=== PATIENT | male | born 1955 | race Hispanic/Latino ===

== ENCOUNTER 2016-11-28 10:56 | Observation (INO) | payer OTHER ==
[~2016-11-28] VITALS: Ht 157.5 cm; Wt 65.8 kg
[~2016-11-28 10:56] MED LIST: MIRALAX17 GM PO; NAPROXEN500 MG PO; OXYCODONE AND A1 TA7 PO; RISPERIDONE4 MG PO; SENOKOT NATURA8.6 MG PO; SEROQUEL (MONO200 MG PO; SEROQUEL XR400 MG PO; SEROQUEL400 MG PO; TRAMADOL50 MG PO; ZITHROMAX Z-PA250 M1 PO
--- NOTE | 2016-11-28 11:03 | NUR ---
61 Y/O MALE C/O 2 WEEK HISTORY CHEST PAIN, BACK PAIN, SOB AND LOSS OF STRENGTH. STATES HE FEELS LIKE HE CANNOT GET A DEEP BREATH IN. ALSO FEELS "WEAK, LIKE A STROKE IS COMING". L HAND GRASP WEAKER THAN R - PT CONFIRMS SYMPTOMS HAVE BEEN ONGOING FOR AT LEAST 1 WEEK. SPEAKING WITH NO NEURO DEFICITS NOTED. FACIAL SYMMETRY PRESENT TAKEN FOR EKG
--- NOTE | 2016-11-28 11:16 | ED CARDIAC/CP/PALPITATIONS ---
History of Present Illness General Chief Complaint: General Adult Stated Complaint: CP PAIN, LEG PAIN, BACK PAIN, HEADACHE Source: patient Exam Limitations: clinical condition Vital Signs & Intake/Output Vital Signs & Intake/Output Vital Signs Date Time Temp Pulse Resp B/P Pulse O2 O2 Flow FiO2 Ox Delivery Rate 11/29 0805 98.1 52 24 127/74 98 Nasal 40% Cannula 11/29 0000 95 Nasal 2.0L Cannula 11/28 2325 97.1 60 18 102/72 96 Nasal 2.0L Cannula 11/28 1900 Nasal 2.0L Cannula 11/28 1840 57 18 114/70 97 Room Air 11/28 1824 97.0 57 18 122/87 98 Nasal 2.0L Cannula 11/28 1637 96.2 60 16 134/73 97 Nasal 2.5L Cannula 11/28 1140 99 Nasal 2.0L Cannula ED Intake and Output 11/29 0000 11/28 1200 Intake Total 410 0 Output Total 350 Balance 60 0 Intake, IV 10 Intake, Oral 400 0 Number 0 Bowel Movements Output, Urine 350 Patient 145 lb 145 lb Weight Allergies Coded Allergies: aspirin (HIVES 11/28/16) Reconcile Medications No Known Home Medications Triage Note: 61 Y/O MALE C/O 2 WEEK HISTORY CHEST PAIN, BACK PAIN, SOB AND LOSS OF STRENGTH. STATES HE FEELS LIKE HE CANNOT GET A DEEP BREATH IN. ALSO FEELS "WEAK, LIKE A STROKE IS COMING". L HAND GRASP WEAKER THAN R - PT CONFIRMS SYMPTOMS HAVE BEEN ONGOING FOR AT LEAST 1 WEEK. SPEAKING WITH NO NEURO DEFICITS NOTED. FACIAL SYMMETRY PRESENT TAKEN FOR EKG Triage Nurses Notes Reviewed? yes Onset: Abrupt Duration: day(s): (2) Timing: recent history Location: LEFT ARM, LEFT LEG Activities at Onset: none Associated Symptoms: CHEST PAIN, SOB, LEFT SIDED WEAKNESS HPI: 61 year old male presents to the ER for chief complaint of left sided arm and leg weakness for the past 2 days. He also reports chest pain, shortness of breath and difficulty walking. He states he knew he was having a stroke because he could not keep things in his left hand. Denies headache or traums. Patient reports history of cva but is not on aspirin. He states he does not drink or smoke anymore, denies drug use. He states he does not have a primary care doctor. Past History Travel History Traveled to [place] past 21 day No Medical History Any Pertinent Medical History? see below for history Neurological: CVA, TIA EENT: NONE Cardiovascular: NONE Respiratory: NONE Gastrointestinal: NONE Hepatic: NONE Renal: NONE Musculoskeletal: BACK INJURY L KNEE L SHOULDER Psychiatric: alcohol dependence, bipolar disease, depression, psychosis, substance abuse Endocrine: NONE Blood Disorders: NONE Cancer(s): NONE WELFARE MANAGER/Reproductive: NONE History of MRSA: No History of VRE: No History of CDIFF: No Surgical History Surgical History: non-contributory Psychosocial History Who do you live with Patient/Self What is your primary language [place] Tobacco Use: Current Daily Use Daily Tobacco Use Amount/Type: => 5 Cigarettes daily Family History Hx Contributory? No Review of Systems Review of Systems Constitutional: Denies: chills, diaphoresis. EENTM: Reports: no symptoms. Respiratory: Reports: short of breath. Denies: cough, sputum production. Cardiovascular: Reports: chest pain, palpitations. GI: Denies: abdominal pain. Genitourinary: Reports: no symptoms. Musculoskeletal: Reports: no symptoms. Skin: Reports: no symptoms. Neurological/Psychological: Reports: anxiety, numbness. Hematologic/Endocrine: Denies: bruising, bleeding, polyuria, polydipsia. Immunologic/Allergic: Reports: no symptoms. All Other Systems: Reviewed and Negative Physical Exam Physical Exam General Appearance: well developed/nourished, alert, awake Head: atraumatic, normal appearance Eyes: Bilateral: normal appearance, PERRL, EOMI. Ears, Nose, Throat: normal pharynx, normal ENT inspection, hearing grossly normal Neck: normal inspection, supple, full range of motion Respiratory: normal breath sounds, TENDER CHEST WALL Cardiovascular: regular rate/rhythm Peripheral Pulses: 2+ radial (R), 2+ radial (L) Gastrointestinal: soft, no organomegaly Back: normal inspection, normal range of motion, vertebral tenderness Extremities: LEFT ARM 4/5 LEFT LEG 4/5 Skin: intact, normal color, warm/dry Comments: nih scale 2 BEDSIDE SWALLOW EVALUATION PASSED Core Measures ACS in differential dx? No Severe Sepsis Present: No Septic Shock Present: No Progress Differential Diagnosis: AMI, aortic dissection, myocarditis, pancreatitis, pericarditis, pneumothorax, PUD/GERD, unstable angina, CVA/TIA, PANIC ATTACK, ANXIETY Plan of Care: Orders Procedure Date/time Status ECHOCARDIOGRAM 11/29 1445 Active DIRECT LDL 11/29 0632 Complete LIPID PANEL 11/29 0600 Complete BASIC ELECTROLYTES PLUS BUN&CR 11/29 0600 Complete TROPONIN LEVEL 11/29 0000 Complete EKG 11/29 0000 Active Heart Healthy Diet 11/28 D Active OXYGEN SETUP (GEN) 11/28 2100 Complete Teach/Educate 11/28 1911 Active Pain Treatment and Response 11/28 191 Active Nutritional Intake, Monitor 11/28 191 Active Isolation 11/28 191 Active Patient Care Conference 11/28 1911 Active Activity/Ambulation 11/28 1911 Active TROPONIN LEVEL 11/28 1800 Complete EKG 11/28 1800 Active Pathway - chart 11/28 1440 Active URINE DRUGS OF ABUSE 11/28 1440 Active URINALYSIS 11/28 1440 Active Code Status 11/[address] in observation 11/28 1429 Active Patient Data 11/28 1352 Active Vital Signs 11/28 1343 Active Code Status 11/28 1343 Complete Intake & Output 11/28 1140 Active LIPID PANEL 11/28 1116 Complete SWALLOW EVALUATION 11/28 UNK Active OXYGEN SETUP CHG 11/28 UNK Complete OXYGEN 11/28 UNK Complete OXYGEN TRANSPORT 11/28 UNK Complete TRC EVALUATION (GEN) 11/28 UNK Active PT Evaluate & Treat 11/28 UNK Active House Staff 11/28 UNK Active Lab Add-on Test 11/28 UNK Active Occupational Tx Eval & Treat 11/28 UNK Active VTE Mechanical Prophylaxis 11/28 UNK Active Vital Signs 11/28 UNK Complete NIH Stroke Scale 11/28 UNK Active PSYCHIATRIC CONSULT 11/28 UNK Active Current Medications Sig/Ryder Start time Last Medication Dose Stop Time Status Admin Atorvastatin Calcium 40 MG 1700 11/29 1700 AC (Lipitor) Acetaminophen 650 MG Q6P PRN 11/28 1445 AC (Tylenol) Laboratory Tests 11/29/16 0945: Methadone Screen Pending, Barbiturate Screen Pending, Ur Phencyclidine Scrn Pending, Amphetamines Screen Pending, U Benzodiazepines Scrn Pending, Urine Cocaine Screen Pending, Urine Cannabis Screen Pending, Urine Color Pending, Urine Clarity Pending, Urine pH Pending, Ur Specific [place] Pending, Urine Protein Pending, Urine Ketones Pending, Urine Nitrite Pending, Urine Bilirubin Pending, Urine Urobilinogen Pending, Ur Leukocyte Esterase Pending, Ur Microscopic Pending, Urine Hemoglobin Pending, Urine Glucose Pending 11/29/16 0632: Anion Gap 6, Estimated GFR > 60, BUN/Creatinine Ratio 16.7, Triglycerides 461 H , Cholesterol 182, LDL Cholesterol Direct 104.72 H, LDL Cholesterol, Calc ND, HDL Cholesterol 34 L, Cholesterol/HDL Ratio 5 H 11/29/16 0030: Troponin I < 0.01 11/28/16 1755: Troponin I < 0.01 11/28/16 1116: Anion Gap 10, Estimated GFR > 60, BUN/Creatinine Ratio 15.6, Glucose 94, Calcium 9.7, Magnesium 2.1, Total Bilirubin 0.4, AST 27, ALT 54, Alkaline Phosphatase 69 , Troponin I < 0.01, Total Protein 7.1, Albumin 4.1, Globulin 3.0, Albumin/ Globulin Ratio 1.4, Triglycerides 307 H, Cholesterol 181, LDL Cholesterol, Calc 80, HDL Cholesterol 40, Cholesterol/HDL Ratio 5 H, CBC w Diff NO MAN DIFF REQ, RBC 4.78, MCV 93.8, MCH 32.3 H, RDW 13.8, MPV 7.4, Gran % 60.6, Lymphocytes % 27.1, Monocytes % 10.1 H, Eosinophils % 1.9, Basophils % 0.3, Absolute Granulocytes 4.8, Absolute Lymphocytes 2.1, Absolute Monocytes 0.8 H, Absolute Eosinophils 0.1, Absolute Basophils 0, PUBS MCHC 34.5 Diagnostic Imaging: Viewed by Me: Radiology Read, CT Scan, MRI. Discussed w/RAD: Radiology Read, CT Scan, MRI. Initial ED EKG: NSR Rhythm Strip: normal sinus rhythm Comments: PATIENT: KINGSLEY POWERS PRESENT AGE: 61 PATIENT ACCOUNT NO: [id number] : 56 LOCATION: [facility] ORDERING PHYSICIAN: SWAPNA VIEIRA MD SERVICE DATE: 11/28/16114 EXAM TYPE: RAD - XRY-PORTABLE CHEST XRAY EXAMINATION: XR PORTABLE CHEST CLINICAL INFORMATION: Cough and shortness of breath COMPARISON: Chest x-rays most recent prior dated 07/31/2015 TECHNIQUE: Portable AP view of the chest was obtained. FINDINGS: Cardia mediastinal silhouette is within normal limits. Stable calcified granuloma right lower lung. No acute airspace opacity. Minor subsegmental atelectasis left lower lung. Bony thorax is intact. IMPRESSION: No acute pulmonary disease. Stable chest x-ray. DICTATED BY: DONNIE KERR MD DATE/TIME DICTATED:11/28/161205 CREDIT CARD CONTROL CLERK:JOSE J DATE/TIME TRANSCRIBED:11/28/161205 CONFIDENTIAL, DO NOT COPY WITHOUT APPROPRIATE AUTHORIZATION. <Electronically signed in Other Vendor System> SIGNED BY: DONNIE KERR MD 11/28/16 1211 PATIENT: KINGSLEY POWERS PRESENT AGE: 61 PATIENT ACCOUNT NO: [id number] : 56 LOCATION: [facility] ORDERING PHYSICIAN: SWAPNA VIEIRA MD SERVICE DATE: 11/28/16-1233 EXAM TYPE: CAT - CT HEAD WO IV CONTRAST EXAMINATION: CT HEAD WITHOUT CONTRAST CLINICAL INFORMATION: Left arm and leg weakness for 2 days. COMPARISON: MRI from 04/01/2015. CT 03/30/2015. TECHNIQUE: Contiguous axial imaging was performed from the skull base to vertex without intravenous contrast. DLP: 601 mGy-cm. FINDINGS: There is no evidence of acute intracranial hemorrhage or territorial infarction. No abnormal mass effect or midline shift is seen. Hebert to white matter differentiation is well preserved. No extra-axial fluid collections are identified. No hydrocephalus. No significant volume loss. There is no abnormal attenuation within the brain parenchyma. The osseous structures and soft tissues are normal. Mild opacification of the right ethmoid air cells. The mastoid air cells and visualized portions of the paranasal sinuses are otherwise well aerated. IMPRESSION: No acute intracranial pathology. DICTATED BY: ZULEIMA HINOJOSA MD DATE/TIME DICTATED:11/28/161247 CREDIT CARD CONTROL CLERK:JOSE J DATE/TIME TRANSCRIBED:11/28/161247 CONFIDENTIAL, DO NOT COPY WITHOUT APPROPRIATE AUTHORIZATION. <Electronically signed in Other Vendor System> SIGNED BY: ZULEIMA HINOJOSA MD 11/28 1252 PATIENT: KINGSLEY POWERS PRESENT AGE: 61 PATIENT ACCOUNT NO: [id number] : 57 LOCATION: [facility] ORDERING PHYSICIAN: SWAPNA VIEIRA MD SERVICE DATE: 11/28/16-1355 EXAM TYPE: MRI - MRI-HEAD W/O DARLEEN EXAMINATION: MR BRAIN WITHOUT CONTRAST CLINICAL INFORMATION: Evaluate for stroke. COMPARISON: Brain MRI from 04/01/2015. TECHNIQUE: Multiplanar, multisequence imaging of the brain was performed without contrast. The study is slightly limited due to motion artifacts. FINDINGS: No diffusion abnormalities are identified to suggest an acute or subacute infarct. The ventricles are normal in size. No mass effect or midline shift is seen. No brain parenchymal signal abnormality is noted. No extra-axial fluid collections are seen. The brainstem and cerebellum are normal. The gradient refocused acquisition is normal. The craniovertebral junction, marrow signal, and midline structures are normal. The major intracranial flow voids at the level of the [place] are preserved. The dural venous sinus flow voids are maintained. The mastoid air cells and paranasal sinuses are fairly well aerated. IMPRESSION: Normal MRI of the brain. No acute process. DICTATED BY: MOOSE NARVAEZ MD DATE/TIME DICTATED:11/28/161614 CREDIT CARD CONTROL CLERK:JOSE J DATE/TIME TRANSCRIBED:11/28/161614 CONFIDENTIAL, DO NOT COPY WITHOUT APPROPRIATE AUTHORIZATION. <Electronically signed in Other Vendor System> SIGNED BY: MOOSE NARVAEZ MD 1622 Departure Departure Time of Disposition: 1345 Disposition: STILL A PATIENT Condition: Stable Clinical Impression Primary Impression: CVA (cerebral vascular accident) Referrals: KAYODE AVALOS MD Departure Forms: Customer Survey General Discharge Information Prescriptions: Current Visit Scripts No Known Home Medications Observation Note Spoke With: DYLON CUNHA,LONNIE Cordova Physician Advisor Notified: GINI CUNHA,TAWANNA [address] Patient In: Non-ED OBS Care Area Rationale for Observation: My rational for observation is as follows [TELE MONITOR, NEURO CHECKS, MRI, NEURO CONSULT, SERIAL EKG/TROPONIN]. Critical Care Note Critical Care Note Critical Care Time: non-applicable
[2016-11-28 11:27] LABS: ABSOLUTE BASOPHIL COUNT 0 /CUMM (0.0-0.2); ABSOLUTE EOSINOPHIL COUNT 0.1 /CUMM (0.0-0.7); ABSOLUTE GRANULOCYTE CT 4.8 /CUMM (1.4-6.5); ABSOLUTE LYMPH COUNT 2.1 /CUMM (1.2-3.4); ABSOLUTE MONOCYTE COUNT 0.8 /CUMM (0.10-0.60); BASOPHIL % 0.3 % (0.0-2.0); EOSINOPHIL % 1.9 % (0-5); GRANULOCYTE % 60.6 % (42.2-75.2); HEMATOCRIT 44.9 % (42-52); MEAN CORPUSCULAR HGB 32.3 PG (27.0-31.0); MEAN CORPUSCULAR HGB CONC 34.5 G/DL (33.0-37.0); MEAN CORPUSCULAR VOLUME 93.8 FL (80.0-94.0); MEAN PLATELET VOLUME 7.4 FL (7.4-10.4); PLATELET COUNT 266 /CUMM (130-400); RBC DISTRIBUTION WIDTH 13.8 % (11.5-14.5); RED BLOOD CELL CT 4.78 /CUMM (4.70-6.10); WHITE BLOOD CELL COUNT 7.9 /CUMM (4.8-10.8)
--- NOTE | 2016-11-28 11:45 | NUR ---
PT TO ROOM, PT NOTED TO BE CRYING RESTING ON STRETCHER , PT NOTED TO BE VERY ANXIOUS, STATES THAT HE HAS MOLD IN HIS HOUSE AND THAT HE FEELS LIKE HE CAN'T CATCH HIS BREATH, PT ALSO STATES THAT HE WAS INVOLVED IN AN ARGUMENT WITH HIS [place] DUE TO HE WON'T FIX THE PROBLEM. ALSO STATES THAT HE HAS BEEN HAVING CP NON RADIATING FOR THE PAST 2 WEEKS AND FEELS LIKE HE HAS BEEN FORGETFUL AND THAT HE IS HAVING WEAKNESS ON HIS LEFT SIDE , PT NOTED WITH WEAKER HAND GRASP ON L SIDE, NORMAL SPEECH AND ABLE TO FOLLOW COMMANDS. WHEN ASKED ABOUT WHEN SYMPTOMS STARTED HE STATD THAT " ITS BEEN A COUPLE OF WEEKS". DR VIEIRA AT BEDSIDE. IV PLACED AND PORTABLE CXR COMPLETED . PT AWARE THAT HE WILL BE TRANSFERRED TO [facility] TO HAVE CT OF HEAD ,
--- NOTE | 2016-11-28 12:11 | RADIOLOGY REPORT ---
EXAMINATION: XR PORTABLE CHEST CLINICAL INFORMATION: Cough and shortness of breath COMPARISON: Chest x-rays most recent prior dated 07/31/2015 TECHNIQUE: Portable AP view of the chest was obtained. FINDINGS: Cardia mediastinal silhouette is within normal limits. Stable calcified granuloma right lower lung. No acute airspace opacity. Minor subsegmental atelectasis left lower lung. Bony thorax is intact. IMPRESSION: No acute pulmonary disease. Stable chest x-ray.
--- NOTE | 2016-11-28 12:12 | NUR ---
PT MEDICATED WITH ATIVAN PER ORDER
--- NOTE | 2016-11-28 12:31 | NUR ---
PT NOTED TO BE SLEEPING AT THIS TIME, REGULAR RESP RATE NOTED . NSR ON MONITOR HR 62
--- NOTE | 2016-11-28 12:40 | NUR ---
PT TO CAT SCAN VIA STRETCHER
--- NOTE | 2016-11-28 12:49 | NUR ---
PT RETURNED FROM CT SCAN. PT AWAKE ALERT AND ORIENTED , NSR ON MONITOR. STATES THAT THE ATIVAN I GAVE HIM HELPED HIM RELAX A LITTLE
--- NOTE | 2016-11-28 12:52 | CT SCAN REPORT ---
EXAMINATION: CT HEAD WITHOUT CONTRAST CLINICAL INFORMATION: Left arm and leg weakness for 2 days. COMPARISON: MRI from 04/01/2015. CT 03/30/2015. TECHNIQUE: Contiguous axial imaging was performed from the skull base to vertex without intravenous contrast. DLP: 601 mGy-cm. FINDINGS: There is no evidence of acute intracranial hemorrhage or territorial infarction. No abnormal mass effect or midline shift is seen. Hebert to white matter differentiation is well preserved. No extra-axial fluid collections are identified. No hydrocephalus. No significant volume loss. There is no abnormal attenuation within the brain parenchyma. The osseous structures and soft tissues are normal. Mild opacification of the right ethmoid air cells. The mastoid air cells and visualized portions of the paranasal sinuses are otherwise well aerated. IMPRESSION: No acute intracranial pathology.
--- NOTE | 2016-11-28 13:34 | NUR ---
PT MEDICATED WITH ASPIRIN PER EMAR.
--- NOTE | 2016-11-28 15:16 | NUR ---
ASSUMED CARE OF PT. REPORT RECIEVED FROM LETICIA. PT SENT TO MRI
--- NOTE | 2016-11-28 16:02 | History & Physical ---
See Addendum CAMRYN CUNHA,IZZY 11/28/16 1601: General Information and HPI MD Statement: I have seen and personally examined KINGSLEY POWERS and documented this H &P. The patient is a 61 year old M who presented with a patient stated chief complaint of [weakness]. Source of Information: patient, old records, EMS Exam Limitations: clinical condition, confusion History of Present Illness: Patient is a 61 YO M with PMH significant for CVA (mar 2015), TIA, Bipolar disorder, Substance abuse, psychosis, substance abuse, rotator cuff injury (left side), mood disorder came to the ER with left sided weakness ongoing for the past 1 week. He also reports right shoulder pain, back pain, left knee pain which were chronic. He appears altered unable to answer appropriately for the questions. He is able to provide history but its not reliable. He reports he has been having these symptoms for the past 1week, he was taking weed to help him with his symptoms. His speech and motor activity appears very delayes during the interview. He does appear in acute distress but very tearful. He also reports chest pain which is nonspecific, noncardiac in nature. He reports cough with yellow phlegm production, not associated with fevers/ chills. He reports nausea, denies any vomiting, diarrhea, recent infections. He reports he was not taking any medications from unknown time period. He is actively talking irrelevant things in the ER. He fell down form a building with his friend in the past, resulted in of his friend followed by PTSD in him. Allergies/Medications Allergies: Coded Allergies: aspirin (HIVES 11/28/16) Home Med list No Known Home Medications Compliance With Home Meds: POOR Past History Travel History Traveled to [place] past 21 day No Medical History Neurological: CVA, TIA EENT: NONE Cardiovascular: NONE Respiratory: NONE Gastrointestinal: NONE Hepatic: NONE Renal: NONE Musculoskeletal: BACK INJURY L KNEE L SHOULDER Psychiatric: alcohol dependence, bipolar disease, depression, psychosis, substance abuse Endocrine: NONE Blood Disorders: NONE Cancer(s): NONE PERSONNEL CONSULTANT/Reproductive: NONE History of MRSA: No History of VRE: No History of CDIFF: No Surgical History Surgical History: non-contributory Past Family/Social History Family History Relations & Conditions if any Relation not specified for: *No pertinent family history Psychosocial History Past Psychosocial History Unobtainable at this time Where do you live? Home Who Do You Live With? self Services at Home: None Primary Language: [place] Smoking Status: Current Everyday Smoker ETOH Use: denies use Illicit Drug Use: marijuana Functional Ability ADLs Independent: dressing, eating, toileting, bathing. Ambulation: independent IADLs Independent: shopping, housework, finances, food prep, telephone, transportation , medication admin. Review of Systems Review of Systems Constitutional: Reports: see HPI. Cardiovascular: Reports: chest pain. Respiratory: Reports: cough. GI: Reports: nausea. Comments ROS negative except the above. Exam & Diagnostic Data Last 24 Hrs of Vital Signs/I&O Vital Signs Date Time Temp Pulse Resp B/P Pulse O2 O2 Flow FiO2 Ox Delivery Rate 11/28 1900 Nasal 2.0L Cannula 11/28 1824 97.0 57 18 122/87 98 Nasal 2.0L Cannula 11/28 1637 96.2 60 16 134/73 97 Nasal 2.5L Cannula 11/28 1140 99 Nasal 2.0L Cannula 11/28 1100 98.6 79 16 137/94 97 Room Air Intake & Output 11/28 1600 11/28 0800 11/28 0000 Intake Total 0 Output Total Balance 0 Intake, Oral 0 Patient 65.771 kg Weight Physical Exam General Appearance Alert, Mild Distress Skin No Rashes, No Breakdown HEENT PERRLA, EOMI Neck Supple Cardiovascular Normal S1, Normal S2 Lungs Clear to Auscultation, Normal Air Movement Abdomen Normal Bowel Sounds, Soft, No Tenderness Neurological slow speech, delayed motor activity, hand splunk consultant on Right > left. Strength 4/5 on left side, 5/5 right side, normal tone. Reflexes 2+, finger nose test normal. Extremities No Clubbing, No Cyanosis, No Edema, a wrist band present around his left knee Vascular Normal Pulses, Pulses Symmetrical Last 24 Hrs of Labs/Steven: Laboratory Tests 11/28/16 1755: Troponin I < 0.01 11/28/16 1116: Anion Gap 10, Estimated GFR > 60, BUN/Creatinine Ratio 15.6, Glucose 94, Calcium 9.7, Magnesium 2.1, Total Bilirubin 0.4, AST 27, ALT 54, Alkaline Phosphatase 69 , Troponin I < 0.01, Total Protein 7.1, Albumin 4.1, Globulin 3.0, Albumin/ Globulin Ratio 1.4, CBC w Diff NO MAN DIFF REQ, RBC 4.78, MCV 93.8, MCH 32.3 H, RDW 13.8, MPV 7.4, Gran % 60.6, Lymphocytes % 27.1, Monocytes % 10.1 H, Eosinophils % 1.9, Basophils % 0.3, Absolute Granulocytes 4.8, Absolute Lymphocytes 2.1, Absolute Monocytes 0.8 H, Absolute Eosinophils 0.1, Absolute Basophils 0, PUBS MCHC 34.5 Diagnostic Data EKG Results NSR - 70 MA 128, QTc 402 CXR Results Normal Assessment/Plan Assessment: Patient is a 61 YO M with PMH significant for multiple psychiatric issues - PTSD , bipolar disorder, alcohol dependence, substance abuse (marijuana) came to the ER with a week history of weakness, multiple chronic pain issues. He is significantly altered in the ER VS Afebrile, HR 79, BP 137/94mmHg, on 2L NC Unremarkable labs Utox not received yet. CT head, MRI and CXR are negtive for any acute pathology PLAN Continue to monitor in observation TIA ruled out with negative CT/MRI and neuro consulted * Aspirin 81mg and atorvastatin 40mg started Atypical chest pain * Serial EKG and trops X3 * A single dose of aspirin 325mg is given in ER Psychosis * Possibly secondary to Bipolar disorder/noncompliance with medications/ marijuana intake * Needs complete psychiatric evaluation * A single dose of xanax given in ER DVT Prophylaxis * SC heparin 5000units TID Code Status * Full Code As Ranked By This Provider Problem List: 1. Marijuana use 2. CVA (cerebral infarction) 3. Chest pain 4. Elevated blood pressure 5. Weakness of left side of body 6. Bronchitis Core Measures/Miscellaneous Acute Coronary Syndrome ACS Diagnosis: No Cerebrovascular Accident CVA/TIA Diagnosis: Yes Neurological S/S of CVA: Left Hemiparesis Bedside Swallow Eval Done: Yes Antithrombotic: No LDL Assessed Within 24 Hours: Yes Currently on Statin: Yes Congestive Heart Failure CHF Diagnosis: No Venous Thromboembolism VTE Risk Factors: Immobility, paresis No [facility] VTE prophylaxis d/t: No contraindications No VTE Pharm Prophylaxis d/t: No contraindications VTE Diagnosis: No VTE Type: NONE VTE Confirmed by (Test): NONE Severe Sepsis Severe Sepsis Present: No Septic Shock Septic Shock Present: No Miscellaneous Documentation Attending Case Discussed With: CHUYITA NAJERA MD Primary Care Physician: PATIENT HAS NO PRIMARY CARE DR Patient sees these Specialists Unknown Level of Patient Care: Telemetry SONAL CONNELL MDYMIN 11/29/16 0755: Resident Review Statement Resident Statement: examined this patient, discussed with internet sales representative, agreed with internet sales representative, reviewed EMR data (avail), reviewed images, amended to note Other Findings: This is 61-year-old [place]-speaking male with past medical history of questionable CVA in March 2015, fall from two-story living resulting in left rotator cuff injury, left knee injury and left-sided weakness, history of polysubstance abuse, bipolar disorder, psychosis, PTSD not following any psychiatry lately and not on any psychiatry medication presented to ER with chief complaint of left-sided weakness of one week associated with speech abnormality. Patient noted very tangential and was not able to provide appropriate history. Patient noted very confused as well. Patient reported nonspecific substernal chest pain nonradiating, occasionally yellow sputum production. He denied any fever, chills, nausea, vomiting, abdominal pain, urinary symptoms. Denies hallucination. His vitals on admission were T 98.6, HR 79, RR 16, BP 137/94, O2 sat 97% on room air. On physical exam patient alert, oriented 3 but confused and tangential with flight of ideas, noted delayed speech with delayed thought processing, HEENT PERRLA EOMI, neck supple, heart S1-S2 normal without murmur, lungs clear on auscultation, abdomen soft nontender nondistended with preserved bowel sounds, noted significant left-sided weakness with power of 4/5 in left lower extremity and power of 3/5 in left upper extremity, preserved sensation, cerebellar signs negative, Babinski downgoing, deferred gait exam, cranial nerves 2-12 intact. His labs were significant for H&H 15.5/44.9, BUN 14/creatinine 0.9, normal LFT, troponin negative UA and urine toxicology was pending EKG normal sinus rhythm with no acute ST-T changes, QTC 402 Chest x-ray was unremarkable CT head did not reveal any acute intracranial pathology MRI head was unremarkable Carotid Doppler did not reveal any hemodynamically significant stenosis Assessment and plan: 1. Left-sided weakness associated with severe right shoulder and back pain - Likely secondary to his previous fall in 2006 resulting in severe back and shoulder problem - CT head and MRI head noted unremarkable, unlikely any acute neurologic event - Check urine for toxicology as patient has history of polysubstance abuse - Carotid Doppler unremarkable for any significant stenosis - observe on telemetry for 24 hours - Serial neuro checks - Continue aspirin and statin - Check lipid profile in a.m. - Pass bedside swallow eval - PT OT evaluation - Swallow evaluation - Neurology evaluation and 2. Atypical chest pain - observe on telemetry - Serial troponin and EKG to rule out underlying coronary event 3. History of bipolar disorder with psychosis - Patient needs psychiatry evaluation - Check urine toxicology for polysubstance abuse 4. DVT prophylaxis Subcutaneous heparin 5. Full code
--- NOTE | 2016-11-28 16:22 | MRI REPORT ---
EXAMINATION: MR BRAIN WITHOUT CONTRAST CLINICAL INFORMATION: Evaluate for stroke. COMPARISON: Brain MRI from 04/01/2015. TECHNIQUE: Multiplanar, multisequence imaging of the brain was performed without contrast. The study is slightly limited due to motion artifacts. FINDINGS: No diffusion abnormalities are identified to suggest an acute or subacute infarct. The ventricles are normal in size. No mass effect or midline shift is seen. No brain parenchymal signal abnormality is noted. No extra-axial fluid collections are seen. The brainstem and cerebellum are normal. The gradient refocused acquisition is normal. The craniovertebral junction, marrow signal, and midline structures are normal. The major intracranial flow voids at the level of the telida of [place] are preserved. The dural venous sinus flow voids are maintained. The mastoid air cells and paranasal sinuses are fairly well aerated. IMPRESSION: Normal MRI of the brain. No acute process.
--- NOTE | 2016-11-28 16:32 | NUR ---
RETURNED FROM MRI AND ULTRASOUND
--- NOTE | 2016-11-28 17:23 | NUR ---
PT TO ROOM 185 BED 2
--- NOTE | 2016-11-28 18:00 | NUR ---
REPEAT EKG AND TROPONINS DONE
--- NOTE | 2016-11-28 18:12 | ULTRASOUND REPORT ---
EXAMINATION: US DUPLEX CAROTID AND VERTEBRAL CLINICAL INFORMATION: Left-sided weakness. COMPARISON: Carotid ultrasound 03/31/2015. TECHNIQUE: Real-time ultrasound and Doppler techniques (integrating B-mode 2D vascular images, Doppler spectral analysis and color flow Doppler imaging) were utilized to interrogate the extracranial carotid and vertebral arteries bilaterally. The degree of stenosis determined by criteria similar to NASCET. FINDINGS: Right common carotid artery peak systolic velocities range between 65.2 and 96.7 cm/s with a maximal end-diastolic velocity of 22.3 cm/s. Right internal carotid artery peak systolic velocities range between 43.6 and 55.4 cm/s with maximal end-diastolic velocity 22 cm/s. Right external carotid artery peak systolic velocity 63.67 m/s. There is antegrade flow within the right vertebral artery. No atherosclerotic disease is appreciated of the right carotid bifurcation. Left common carotid artery peak systolic velocities range between 77 and 83.3 cm/s with maximal end-diastolic velocity of 26.4 cm/s. Left internal carotid artery peak systolic velocities range between 54.6 and 60.1 cm/s with maximal end-diastolic velocity of 25.5 cm/s. Left external carotid artery peak systolic velocity is 70.9 cm/s. There is antegrade flow within the left vertebral artery. There is no atherosclerotic disease of the left carotid bifurcation. IMPRESSION: There is no significant arterial stenosis involving the internal carotid arteries by sonographic criteria.
--- NOTE | 2016-11-28 18:23 | NUR ---
REPORT CALLED TO ROBERT ON TELE UNIT. ROOM NOT CLEAN YET. ROBERT TO CALL WHEN BED READY
--- NOTE | 2016-11-28 18:24 | NUR ---
PT GIVEN SNACK. ROBERT ON TELE UNIT ORDERING [facility] TRAY FOR PT
[2016-11-28 18:40] VITALS: BP 114/70
[2016-11-28 23:25] VITALS: BP 102/72
--- NOTE | 2016-11-29 07:35 | PN- Housestaff ---
See Addendum Subjective Follow-up For: substance abuse left sided weakness Tele-Events Since Last Visit: Sinus christopher 50-58bpm NO overnight events Subjective: I saw the patient today morning He is bellerigent, shouting at people, informs god is only person who can treat him. No overnight events otherwise He became very agitated by afternoon and left AMA Review of Systems Constitutional: Reports: see HPI. Comments: ROS cannot be appreciated as per the patients condition Objective Last 24 Hrs of Vital Signs/I&O Vital Signs Date Time Temp Pulse Resp B/P Pulse O2 O2 Flow FiO2 Ox Delivery Rate 11/29 0000 95 Nasal 2.0L Cannula 11/28 2325 97.1 60 18 102/72 96 Nasal 2.0L Cannula 11/28 1900 Nasal 2.0L Cannula 11/28 1840 57 18 114/70 97 Room Air 11/28 1824 97.0 57 18 122/87 98 Nasal 2.0L Cannula 11/28 1637 96.2 60 16 134/73 97 Nasal 2.5L Cannula 11/28 1140 99 Nasal 2.0L Cannula 11/28 1100 98.6 79 16 137/94 97 Room Air Intake & Output 11/29 0800 11/29 0000 11/28 1600 Intake Total 200 410 0 Output Total 500 350 Balance -300 60 0 Intake, IV 10 Intake, Oral 200 400 0 Number 0 Bowel Movements Output, Urine 500 350 Patient 65.771 kg 65.771 kg Weight Physical Exam General Appearance: Alert, Oriented X3, not cooperative Skin: No Rashes, No Breakdown Other Physical Findings: not examined him as he is very uncoopertive. Lines/Diet/Fluids Lines: peripheral lines Assessment/Plan Assessment: Patient is a 61 YO M with PMH significant for multiple psychiatric issues - PTSD , bipolar disorder, alcohol dependence, substance abuse (marijuana) came to the ER with a week history of weakness, multiple chronic pain issues. He is significantly altered in the ER VS Afebrile, HR 79, BP 137/94mmHg, on 2L NC Unremarkable labs Utox not received yet. CT head, MRI and CXR are negtive for any acute pathology PLAN Left sided weakness * Ruled out acute neurological event with CT/MRI * Neuro consutled - saw the patient, thought could be myelopathy suggested MRI cervical and thoracic spine - can be done as outpatient. Psychosis * Possibly secondary to Bipolar disorder/noncompliance with medications/ marijuana intake * Today patient left AMA even before * A single dose of xanax given in ER Patient left AMA in the afternoon. DVT Prophylaxis * SC heparin 5000units TID Code Status * Full Code Problem List: 1. Marijuana use 2. Atypical chest pain 3. Weakness of left side of body Pain Ratin Pain Location: n/a Pain Goal: Pain 4 or less Pain Plan: tylenol prn Tomorrow's Labs & Rationales: none
[2016-11-29 08:05] VITALS: BP 127/74
--- NOTE | 2016-11-29 09:21 | Cons- Neurology ---
General Information and HPI Consulting Request Date of Consult: 11/29/16 Requested By: CHUYITA NAJERA MD Reason for Consult: TIA Source of Information: patient, EMR Exam Limitations: poor historian History of Present Illness: 61-year-old man who presents anxious and mildly agitated with his overall affect appearing to limit his ability to provide a detailed history. Information needs to be coaxed from him. He states that he has been feeling generally unwell for a week but would not clearly specify his symptoms. Records indicate that he has had some left-sided weakness. He states he has had multiple "strokes" with left-sided weakness in the past. However he continues to smoke cigarettes and he does not take any medications on a regular basis. He states that neighbors persuaded him to be seen in the emergency room, and he reluctantly agreed. He expressed a desire to be discharged to home and initially refused my exam. Ultimately however he was agreeable. He states he was involved in a work-related accident in 2006 in which he and a coworker fell from a height. His coworker did not survive but pt sustained right shoulder and left knee injuries and has had chronic pain since that time. Allergies/Medications Allergies: Coded Allergies: aspirin (HIVES 11/28/16) Home Med List: No Known Home Medications Current Medications: Current Medications Sig/Ryder Start time Last Medication Dose Route Stop Time Status Admin Acetaminophen 650 MG Q6P PRN 11/28 1445 AC PO Aspirin 0 .STK-MED ONE 11/28 1335 DC PO Aspirin 325 MG ONCE ONE 11/28 1315 DC 11/28 PO 11/28 1316 1334 Aspirin Buffered 81 MG DAILY 11/29 1000 AC PO Atorvastatin Calcium 40 MG 1700 11/29 1700 AC PO Heparin Sodium 0 .STK-MED ONE 11/28 1447 DC (Porcine) .ROUTE Heparin Sodium 5,000 UNIT Q8 11/28 1439 AC 11/29 (Porcine) SC 0610 Lorazepam 0 .STK-MED ONE 11/28 1213 DC .ROUTE Lorazepam 1 MG ONCE ONE 11/28 1145 DC 11/28 IV 11/28 1146 1212 Review of Systems Review of Systems: REVIEW OF SYSTEMS: (-) = negative / normal blank = not discussed Neurologic: see HPI Eyes: Frequent right eye tearing ENT: (-) Constitutional: (-) CV: (-) Respiratory: (-) /Renal: (-) Musculoskeletal: see hpi Skin: (-) Psychiatric: see hpi/pmh Heme: (-) GI: (-) Allergy/Immune: (-) Endocrine: (-) Other: (-) Past History Travel History Traveled to [place] past 21 day No Medical History Blood Transfusion Hx: No Neurological: CVA, TIA EENT: NONE Cardiovascular: NONE Respiratory: NONE Gastrointestinal: NONE Hepatic: NONE Renal: NONE Musculoskeletal: BACK INJURY L KNEE L SHOULDER Psychiatric: alcohol dependence, bipolar disease, depression, psychosis, substance abuse Endocrine: NONE Blood Disorders: coagulopathy Cancer(s): NONE 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 Home Who Do You Live With? self Services at Home: None Primary Language: Mosotho (bilingual. ESL, but fluent), Pashto Smoking Status: Current Everyday Smoker ETOH Use: denies use Illicit Drug Use: marijuana Functional Ability ADLs Independent: dressing, eating, toileting, bathing. Ambulation: independent IADLs Independent: shopping, housework, finances, food prep, telephone, transportation , medication admin. 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 Exam & Diagnostic Data Vital Signs and I&O Vital Signs Date Time Temp Pulse Resp B/P Pulse O2 O2 Flow FiO2 Ox Delivery Rate 11/29 0805 98.1 52 24 127/74 98 Nasal 40% Cannula 11/29 0000 95 Nasal 2.0L Cannula 11/28 2325 97.1 60 18 102/72 96 Nasal 2.0L Cannula 11/28 1900 Nasal 2.0L Cannula 11/28 1840 57 18 114/70 97 Room Air 11/28 1824 97.0 57 18 122/87 98 Nasal 2.0L Cannula 11/28 1637 96.2 60 16 134/73 97 Nasal 2.5L Cannula 11/28 1140 99 Nasal 2.0L Cannula 11/28 1100 98.6 79 16 137/94 97 Room Air Intake & Output 11/29 1600 11/29 0800 11/29 0000 Intake Total 200 410 Output Total 500 350 Balance -300 60 Intake, IV 10 Intake, Oral 200 400 Number 0 Bowel Movements Output, Urine 500 350 Patient 145 lb Weight Physical Exam: PHYSICAL EXAMINATION: nl = normal NT or blank = not tested GENERAL Appearance: Awake, alert, behavior appears hypomanic. He is tangential but redirectable. Head: nl Eyes: nl ENT: nl Neck: nl Carotids: nl Lungs: nl Heart: nl Extremities: Left knee tender to palpation in the patellar tendon region Spine: nl NEUROLOGIC MENTAL STATUS Level of consciousness: nl Orientation: nl Attention / Concentration: Mildly impaired Memory: nl Fund of Knowledge: nl Speech / Language: nl NEUROLOGIC CRANIAL NERVES I: Olfaction: NT II: Optic nerves: nl Visual cohen: nl III: Pupils: nl Levator palpebrae: nl III, IV, : Ocular alignment: nl Extraocular motility: nl Pursuits/ saccades: nl V: Facial sensation: nl Masseter/Pterygoids: nl VII: Facial Motor: nl VIII: Hearing (finger rub): nl IX, X: Uvula and palate: nl XI: SCM, Upper trap.: nl XII: Tongue: nl MOTOR / NEUROMUSCULAR Bulk: nl Tone: nl Strength: nl Rapid alternating movements: nl Fine motor movements: nl Abnormal / involuntary movements: none CEREBELLAR / COORDINATION: intact SENSATION: Reports reduced to light touch, joint position, vibration, left lower extremity. Diminished pinprick in the distal left lower extremity. DTR's Symmetrically trace to 1+ in the upper extremities Knee jerks 1+ right, 2+ left Trace ankle jerks BENITEZ'S: Trace left, negative right PLANTARS: flexor GAIT: Testing was attempted. The patient was able to move supine to sit to stand. However, once standing, he displayed moderate instability and loss of balance posteriorly and toward his left Last 48 Hours of Lab Results: Laboratory Tests 11/29 11/29 11/28 0632 0030 1755 Chemistry Sodium (137 - 145 mmol/L) 138 Potassium (3.5 - 5.1 mmol/L) 4.4 Chloride (98 - 107 mmol/L) 106 Carbon Dioxide (22 - 30 mmol/L) 26 Anion Gap (5 - 16) 6 BUN (9 - 20 mg/dL) 15 Creatinine (0.7 - 1.2 mg/dL) 0.9 Estimated GFR (>60 ml/min) > 60 BUN/Creatinine Ratio (7 - 25 %) 16.7 Troponin I (<0.11 ng/ml) < 0.01 < 0.01 Triglycerides (<150 mg/dL) 461 H Cholesterol (< 200 MG/DL) 182 LDL Cholesterol Direct (<100 mg/dL) Pending LDL Cholesterol, Calc (65 - 129 mg/dL) ND HDL Cholesterol (40 - 60 mg/dL) 34 L Cholesterol/HDL Ratio (0.00 - 4.88 %) 5 H 11/28 1116 Chemistry Sodium (137 - 145 mmol/L) 140 Potassium (3.5 - 5.1 mmol/L) 4.4 Chloride (98 - 107 mmol/L) 105 Carbon Dioxide (22 - 30 mmol/L) 25 Anion Gap (5 - 16) 10 BUN (9 - 20 mg/dL) 14 Creatinine (0.7 - 1.2 mg/dL) 0.9 Estimated GFR (>60 ml/min) > 60 BUN/Creatinine Ratio (7 - 25 %) 15.6 Glucose (65 - 99 mg/dL) 94 Calcium (8.4 - 10.2 mg/dL) 9.7 Magnesium (1.6 - 2.3 mg/dL) 2.1 Total Bilirubin (0.2 - 1.3 mg/dL) 0.4 AST (17 - 59 U/L) 27 ALT (21 - 72 U/L) 54 Alkaline Phosphatase (< 127 U/L) 69 Troponin I (<0.11 ng/ml) < 0.01 Total Protein (6.3 - 8.2 g/dL) 7.1 Albumin (3.5 - 5.0 g/dL) 4.1 Globulin (1.9 - 4.2 gm/dL) 3.0 Albumin/Globulin Ratio (1.1 - 2.2 %) 1.4 Triglycerides (<150 mg/dL) 307 H Cholesterol (< 200 MG/DL) 181 LDL Cholesterol, Calc (65 - 129 mg/dL) 80 HDL Cholesterol (40 - 60 mg/dL) 40 Cholesterol/HDL Ratio (0.00 - 4.88 %) 5 H Hematology CBC w Diff NO MAN DIFF REQ WBC (4.8 - 10.8 /CUMM) 7.9 RBC (4.70 - 6.10 /CUMM) 4.78 Hgb (14.0 - 18.0 G/DL) 15.5 Hct (42 - 52 %) 44.9 MCV (80.0 - 94.0 FL) 93.8 MCH (27.0 - 31.0 PG) 32.3 H RDW (11.5 - 14.5 %) 13.8 Plt Count (130 - 400 /CUMM) 266 MPV (7.4 - 10.4 FL) 7.4 Gran % (42.2 - 75.2 %) 60.6 Lymphocytes % (20.5 - 51.1 %) 27.1 Monocytes % (1.7 - 9.3 %) 10.1 H Eosinophils % (0 - 5 %) 1.9 Basophils % (0.0 - 2.0 %) 0.3 Absolute Granulocytes (1.4 - 6.5 /CUMM) 4.8 Absolute Lymphocytes (1.2 - 3.4 /CUMM) 2.1 Absolute Monocytes (0.10 - 0.60 /CUMM) 0.8 H Absolute Eosinophils (0.0 - 0.7 /CUMM) 0.1 Absolute Basophils (0.0 - 0.2 /CUMM) 0 PUBS MCHC (33.0 - 37.0 G/DL) 34.5 Imaging/Other Studies: MR BRAIN WITHOUT CONTRAST CLINICAL INFORMATION: Evaluate for stroke. COMPARISON: Brain MRI from 04/01/2015. TECHNIQUE: Multiplanar, multisequence imaging of the brain was performed without contrast. The study is slightly limited due to motion artifacts. FINDINGS: No diffusion abnormalities are identified to suggest an acute or subacute infarct. The ventricles are normal in size. No mass effect or midline shift is seen. No brain parenchymal signal abnormality is noted. No extra-axial fluid collections are seen. The brainstem and cerebellum are normal. The gradient refocused acquisition is normal. The craniovertebral junction, marrow signal, and midline structures are normal. The major intracranial flow voids at the level of the [place] are preserved. The dural venous sinus flow voids are maintained. The mastoid air cells and paranasal sinuses are fairly well aerated. IMPRESSION: Normal MRI of the brain. No acute process. DICTATED BY: MOOSE NARVAEZ MD DATE/TIME DICTATED:11/28/161614 Carotid US FINDINGS: Right common carotid artery peak systolic velocities range between 65.2 and 96.7 cm/s with a maximal end-diastolic velocity of 22.3 cm/s. Right internal carotid artery peak systolic velocities range between 43.6 and 55.4 cm/s with maximal end-diastolic velocity 22 cm/s. Right external carotid artery peak systolic velocity 63.67 m/s. There is antegrade flow within the right vertebral artery. No atherosclerotic disease is appreciated of the right carotid bifurcation. Left common carotid artery peak systolic velocities range between 77 and 83.3 cm/s with maximal end-diastolic velocity of 26.4 cm/s. Left internal carotid artery peak systolic velocities range between 54.6 and 60.1 cm/s with maximal end-diastolic velocity of 25.5 cm/s. Left external carotid artery peak systolic velocity is 70.9 cm/s. There is antegrade flow within the left vertebral artery. There is no atherosclerotic disease of the left carotid bifurcation. IMPRESSION: There is no significant arterial stenosis involving the internal carotid arteries by sonographic criteria. DICTATED BY: HALEIGH CAGE MD DATE/TIME DICTATED:11/28/161804 Assessment/Plan Assessment: ?TIA (unlikely; sxs present for ~ 1 week? ?Cerv/thoracic myelopathy Remote hx trauma Smoker Hyperlipidemia Medication nonadherence Psychiatric/behavioral d/o Recommendations: MRI cervical and thoracic spine without contrast, with benzodiazepine sedation prn claustrophobia Statin PT and OT DVT prophylaxis Psychiatry consultation Consult Acknowledgment - Thank you for your consult request.
--- NOTE | 2016-11-29 14:09 | Patient Discharge Instructions ---
Discharge Instructions General Discharge Information Special Instructions: please follow up with a pscyiatrist Diet Continue normal diet: Yes Acute Coronary Syndrome Inclusion Criteria At DC or during hospital stay patient has or had the following: ACS DIAGNOSIS No Discharge Core Measures Meds if any: Prescribed or Continued at Discharge Meds if any: NOT Prescribed or Continued at Discharge Congestive Heart Failure Inclusion Criteria At DC or during hospital stay patient has or had the following: CHF DIAGNOSIS No Discharge Core Measures Meds if any: Prescribed or Continued at Discharge Meds if any: NOT Prescribed or Continued at Discharge Cerebrovascular accident Inclusion Criteria At DC or during hospital stay patient has or had the following: CVA/TIA Diagnosis No Discharge Core Measures Meds if any: Prescribed or Continued at Discharge Meds if any: NOT Prescribed or Continued at Discharge Venous thromboembolism Inclusion Criteria VTE Diagnosis No VTE Type NONE VTE Confirmed by (Test) NONE Discharge Core Measures - Per Current guidelines, there needs to be overlap - treatment for the first 5 days of Warfarin therapy. - If discharged on Warfarin prior to 5 days of - overlap therapy, the patient will need to be - assessed for post discharge needs including - *Post discharge parental anticoagulation - *Warfarin and/or parental anticoagulation education - *Follow up date to check INR post discharge At least 5 days overlap therapy as Inpatient No Meds if any: Prescribed or Continued at Discharge Note: Overlap Therapy is Warfarin and Anticoagulant Meds if any: NOT Prescribed or Continued at Discharge
--- NOTE | 2016-11-29 16:41 | NUR ---
LATE ENTRY - PT LEFT AMA @ 1415 AFTER HE GOT ANGRY/AGITATED ABOUT THE PLAN TO SEND HIM TO REHAB. AN ORDER #7 WAS CALLED TO MAINTAIN SAFETY. PT LEFT W/O WAITING/TAKING DISCHARGE PAPERWORK WITH HIM.
--- NOTE | 2016-11-29 20:07 | Event Note ---
Event Note Event Note: At around 2:15pm -- patient is very agitated, declined going to acute rehab. He reports god want him to be home and left AMA signing the paper. He didnt even wait to get the discharge paperwork. He was in a hurry. Order 7 was called for safety as patient is very agitated to go out of the hospital. My resident (), and attending () are with me near the room throughout the situation.
== END 2016-11-29 14:15 | disposition left against medical advice (07) ==
LOC: ENRESERVTM → ENRESERVDT → ERH 10:56 → ENPENDDIS 14:29 → ERHI 14:29 → 1NO 14:29
PROVIDERS: Emergency Medicine; Internal Medicine; ADMIT Internal Medicine
DX: R07.89 Other chest pain (principal); R53.1 Weakness; G89.29 Other chronic pain; Z87.828 Personal history of other (healed) physical injury and trauma; Z87.898 Personal history of other specified conditions; E78.5 Hyperlipidemia, unspecified; F17.200 Nicotine dependence, unspecified, uncomplicated; R41.0 Disorientation, unspecified
CPT/HCPCS: 1263; 1328; 1425; 1530; 1748; 2000; 6020; 70551; 36415; 80307; 81003; 82436; 93005; 93010; 96372; 96374; 97161-GP; 97165-GO; 97530-GP; G0378; J1644

== ENCOUNTER 2017-01-26 08:42 | Inpatient (IN) | payer OTHER ==
[~2017-01-26] VITALS: Ht 160 cm; Wt 68.0 kg
--- NOTE | 2017-01-26 09:05 | NUR ---
C/O HEADACHE, CHEST PAIN, SOB, DIZZINESS AND VOMITING SINCE YESTERDAY, STATES HE "I WAS KICKED OUT OF MY APARTMENT YESTERDAY". ATTRIBUTES SXS TO MOLD IN APARTMENT.
--- NOTE | 2017-01-26 09:22 | ED GENERAL ADULT ---
History of Present Illness General Chief Complaint: Nausea, Vomiting, Diarrhea Stated Complaint: AKHTAR/VOMITING SINCE YESTERDAY Source: patient, old records Exam Limitations: no limitations Vital Signs & Intake/Output Vital Signs & Intake/Output Vital Signs Date Time Temp Pulse Resp B/P B/P Pulse O2 O2 Flow FiO2 Mean Ox Delivery Rate 01/26 1233 63 15 126/64 97 Room Air 01/26 1109 97.9 60 18 125/83 94 Room Air 01/26 1046 95 01/26 0907 98.4 65 20 111/78 99 Room Air Allergies Coded Allergies: aspirin (HIVES 11/28/16) Reconcile Medications No Known Home Medications Triage Note: C/O HEADACHE, CHEST PAIN, SOB, DIZZINESS AND VOMITING SINCE YESTERDAY, STATES HE "I WAS KICKED OUT OF MY APARTMENT YESTERDAY". ATTRIBUTES SXS TO MOLD IN APARTMENT. Triage Nurses Notes Reviewed? yes HPI: Patient presents to the emergency department on 3 separate complaints. His first complaint is increasing dyspnea on exertion. Patient states that 5 years ago he was able to walk across town without difficulty. Patient states that 6 months ago he was able to walk up a hill in front of his apartment without difficulty. Patient states that over the past few weeks he has to stop and 6-7 times walk about that same hill. Patient denies any chest pain or palpitations. There is no orthopnea. There are no fevers or chills. Patient states that he has a chronic nonproductive cough ever since he moved into this apartment intense at there's mold in their. Patient states that one month ago he had to throw out his pillow because he woke up in the morning and noticed blood on it and he is not sure if he coughed up blood, vomited blood or had a bloody nose. Patient has had no symptoms like that since. Patient with the complaint is abdominal pain that is had for the past 3-4 days. Positive anorexia. The pain is in the periumbilical area. The pain radiates through to his back. The pain is squeezing in nature. The pain is constant at a 2 out of 10 but then increases to a 10 out of 10 for a few seconds and then will go back down to a 2 out of 10. There is no nausea or vomiting however there is anorexia. There is no diarrhea. There are no fevers or chills. There are no aggravating or mitigating factors. Patient's last complaint is an intermittent headache in the frontal area. The pain will come on for a few hours and then slowly go away. There is no radiation. The pain is throbbing in nature. There is no blurry vision. Patient has not had a headache in the past 2 days. Past History Travel History Traveled to [place] past 21 day No Medical History Any Pertinent Medical History? 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 No Review of Systems Review of Systems Constitutional: Reports: no symptoms. EENTM: Reports: no symptoms. Respiratory: Reports: see HPI. Cardiovascular: Reports: no symptoms. GI: Reports: see HPI, abdominal pain. Genitourinary: Reports: no symptoms. Musculoskeletal: Reports: no symptoms. Skin: Reports: no symptoms. Neurological/Psychological: Reports: see HPI, headache. Hematologic/Endocrine: Reports: no symptoms. Immunologic/Allergic: Reports: no symptoms. All Other Systems: Reviewed and Negative Physical Exam Physical Exam General Appearance: well developed/nourished, alert, awake, anxious, moderate distress Head: atraumatic, normal appearance Eyes: Bilateral: PERRL, EOMI. Ears, Nose, Throat: normal pharynx, normal ENT inspection Neck: normal inspection, supple, full range of motion Respiratory: normal breath sounds, chest non-tender, no respiratory distress, lungs clear Cardiovascular: regular rate/rhythm, normal peripheral pulses Gastrointestinal: normal bowel sounds, soft, non-tender, no organomegaly, NO GUARDING OR REBOUND Back: normal inspection, normal range of motion Extremities: normal inspection, normal capillary refill, normal range of motion, no edema Neurologic/Psych: no motor/sensory deficits, awake, alert, oriented x 3, normal gait, normal mood/affect, NO NEUROLOGICAL FINDINGS Skin: intact, normal color, warm/dry Lymphatic: no anterior cervical maurice Core Measures ACS in differential dx? No ASA ordered for poss ACS? No-ACS ruled out CVA/TIA Diagnosis: No Severe Sepsis Present: No Septic Shock Present: No Progress Differential Diagnoses I considered the following diagnoses in my evaluation of the patient: [AMI, PE, pneumonia, pulmonary edema, pancreatitis, cholecystitis, diverticulitis, UTI, electrolyte abnormality] Plan of Care: Orders Procedure Date/time Status Patient Data 01/26 1314 Active Admit to inpatient 01/26 1308 Active Add-on Test (ER Only) 01/26 1155 Active Add-on Test (ER Only) 01/26 1030 Active Add-on Test (ER Only) 01/26 1028 Active TRIGLYCERIDES 01/26 1008 Complete ETHANOL 01/26 1008 Complete B-TYPE NATRIURETIC PEP (BNP) 01/26 1008 Complete XRY-PORTABLE CHEST XRAY 01/26 0951 Active D-DIMER 01/26 0940 Complete Telemetry/Jalousie Installer 01/26 0917 Active URINALYSIS 01/26 0917 Active TROPONIN LEVEL 01/26 0917 Complete LIPASE 01/26 0917 Complete COMPREHENSIVE METABOLIC PANEL 01/26 0917 Complete CBC WITHOUT DIFFERENTIAL 01/26 917 Complete AMYLASE 01/26 0917 Complete EKG 01/26 0906 Active Laboratory Tests 01/26/17 1008: Anion Gap 10, Estimated GFR > 60, BUN/Creatinine Ratio 15.0, Glucose 99, Calcium 9.8, Total Bilirubin 0.7, AST 23, ALT 49, Alkaline Phosphatase 60, Troponin I < 0.01, [id number] Pept 36.6, Total Protein 7.0, Albumin 4.2, Globulin 2.8, Albumin/Globulin Ratio 1.5, Triglycerides 161 H, Amylase 166 H, Lipase 703 H, Serum Alcohol < 10.0 01/26/17 0940: D-Dimer High Sensitivty 484 H, CBC w Diff NO MAN DIFF REQ, RBC 4.81, MCV 95.9 H, MCH 32.1 H, RDW 13.9, MPV 7.9, Gran % 72.9, Lymphocytes % 10.7 L, Monocytes % 8.3, Eosinophils % 7.7 H, Basophils % 0.4, Absolute Granulocytes 8.9 H, Absolute Lymphocytes 1.3, Absolute Monocytes 1.0 H, Absolute Eosinophils 0.9, Absolute Basophils 0.1, PUBS MCHC 33.5 Diagnostic Imaging: Viewed by Me: CT Scan. Discussed w/RAD: CT Scan. Radiology Impression: PATIENT: KINGSLEY POWERS PRESENT AGE: 61 PATIENT ACCOUNT NO: [id number] : 56 LOCATION: [facility] ORDERING PHYSICIAN: MOOSE WHEELER MD SERVICE DATE: 01/26/17 EXAM TYPE: CAT - CTA CHEST-PULMONARY EMBOLISM EXAMINATION: CT ANGIOGRAM OF THE CHEST WITH AND WITHOUT CONTRAST (CT PULMONARY ANGIOGRAM FOR PE) CLINICAL INFORMATION: Dyspnea on exertion. COMPARISON: Chest radiograph 11/28/2016. CT 03/30/2015. TECHNIQUE: Prior to contrast administration, noncontrast localization images were obtained. Subsequently, multidetector volumetric imaging was performed from the thoracic inlet to below the diaphragms following the administration of 125 mL Optiray 350 intravenous contrast. No contrast reaction reported. Sagittal, coronal, and MIP oblique sagittal reformatted images were obtained on the CT workstation, uploaded to PACS, and reviewed. Total exam dose-length product 364 mGy-cm. FINDINGS: QUALITY OF STUDY/CONTRAST BOLUS: Satisfactory PULMONARY ARTERIES: No central or segmental pulmonary emboli. THORACIC AORTA: No aneurysm or dissection. LUNG: The central airways are patent. Mild centrilobular emphysema and paraseptal emphysema. Right basilar subsegmental atelectasis. Multiple bilateral calcified granulomata. No dense consolidation. PLEURA: No pleural effusion or pneumothorax. MEDIASTINUM: The heart is normal in size. No pericardial effusion. No mediastinal lymphadenopathy. The visualized portion of the thyroid gland is unremarkable. No evidence of septal bowing or right heart strain. CHEST WALL/AXILLA: No axillary or internal mammary lymphadenopathy. OSSEOUS STRUCTURES: No acute or suspicious osseous abnormality. Mild degenerative changes of the spine. UPPER ABDOMEN: There is hypoattenuation of the liver consistent with hepatic steatosis. No reflux of contrast into the hepatic veins to suggest elevated right heart pressures. IMPRESSION: 1. No pulmonary embolism or other acute intrathoracic abnormality. 2. Multiple calcified granulomata are again noted in both lungs. 3. Hepatic steatosis. VTE: negative DICTATED BY: MICAELA CUNHA,ZULEIMA DATE/TIME DICTATED:01/26/171241 PUBLIC SPACE ATTENDANT:JOSE J DATE/TIME TRANSCRIBED:01/26/171241 CONFIDENTIAL, DO NOT COPY WITHOUT APPROPRIATE AUTHORIZATION. <Electronically signed in Other Vendor System> SIGNED BY: MICAELA CUNHA,ZULEIMA 01/26/17 1258 Initial ED EKG: NSR, no ST T wave changes Prior EKG: unchanged Departure Departure Disposition: STILL A PATIENT Condition: Stable Clinical Impression Primary Impression: Acute pancreatitis Referrals: PATIENT HAS NO PRIMARY CARE DR (PCP/Family) Departure Forms: Customer Survey General Discharge Information Prescriptions: Current Visit Scripts No Known Home Medications Admission Note Spoke With: DHRUV SCHWARZ M.D Documentation of Exam: Documentation of any treatments & extenuating circumstances including Concerns Regarding Discharge (functional status, medication knowledge or non-compliance, living conditions, etc.) that warrant an admission rather than observation: [ Nothing by mouth, IV fluids, IV pain control, GI consult, consider cardiology consultation for the dyspnea on exertion.] Critical Care Note Critical Care Note Critical Care Time: mins: (45 MIN)
[2017-01-26 09:56] LABS: ABSOLUTE BASOPHIL COUNT 0.1 /CUMM (0.0-0.2); ABSOLUTE EOSINOPHIL COUNT 0.9 /CUMM (0.0-0.7); ABSOLUTE GRANULOCYTE CT 8.9 /CUMM (1.4-6.5); ABSOLUTE LYMPH COUNT 1.3 /CUMM (1.2-3.4); BASOPHIL % 0.4 % (0.0-2.0); EOSINOPHIL % 7.7 % (0-5); GRANULOCYTE % 72.9 % (42.2-75.2); HEMATOCRIT 46.1 % (42-52); MEAN CORPUSCULAR HGB 32.1 PG (27.0-31.0); MEAN CORPUSCULAR HGB CONC 33.5 G/DL (33.0-37.0); MEAN CORPUSCULAR VOLUME 95.9 FL (80.0-94.0); MEAN PLATELET VOLUME 7.9 FL (7.4-10.4); PLATELET COUNT 251 /CUMM (130-400); RBC DISTRIBUTION WIDTH 13.9 % (11.5-14.5); RED BLOOD CELL CT 4.81 /CUMM (4.70-6.10); WHITE BLOOD CELL COUNT 12.3 /CUMM (4.8-10.8)
--- NOTE | 2017-01-26 10:01 | NUR ---
REDRAW OF SST NEEDED PER LAB.
--- NOTE | 2017-01-26 10:09 | NUR ---
SST REDRAWN AND SENT TO LAB
--- NOTE | 2017-01-26 10:36 | NUR ---
PT MEDICATED DOCUMENTED IN EMAR. RT CALLED FOR NEB TX
--- NOTE | 2017-01-26 12:10 | NUR ---
2ND IV STARTED FOR CTA, IVF HUNG PER VERBAL ORDER FROM MD. ASKED FOR UA SAMPLE AND INSTRUCTED ON COLLECTION. PT HOOKED UP TO ACCOUNT RECEIVABLE CLERK IN ROOM. A&OX4 , RESP EVEN AND NONLABORED, EQUAL RISE AND FALL OF THE CHEST AND IN NAD AT THIS TIME. DENIES PAIN OR DISCOMFORT. GCS 15. WILL CONT TO MONITOR.
--- NOTE | 2017-01-26 12:14 | NUR ---
PT TO CT AT THIS TIME VIA STRETCHER.
--- NOTE | 2017-01-26 12:16 | NUR ---
PER MD, GIVE MORPHINE IF PT C/O PAIN. PT DENIES PAIN AT THIS TIME, MORPHINE HELD.
--- NOTE | 2017-01-26 12:33 | NUR ---
PT BACK FROM CT AT THIS TIME, HOOKED BACK UP TO PRINTER HELPER. DENIES PAIN OR DISCOMFORT AT THIS TIME.
--- NOTE | 2017-01-26 12:54 | CT SCAN REPORT ---
EXAMINATION: CT ANGIOGRAM OF THE CHEST WITH AND WITHOUT CONTRAST (CT PULMONARY ANGIOGRAM FOR PE) CLINICAL INFORMATION: Dyspnea on exertion. COMPARISON: Chest radiograph 11/28/2016. CT 03/30/2015. TECHNIQUE: Prior to contrast administration, noncontrast localization images were obtained. Subsequently, multidetector volumetric imaging was performed from the thoracic inlet to below the diaphragms following the administration of 125 mL Optiray 350 intravenous contrast. No contrast reaction reported. Sagittal, coronal, and MIP oblique sagittal reformatted images were obtained on the CT workstation, uploaded to PACS, and reviewed. Total exam dose-length product 364 mGy-cm. FINDINGS: QUALITY OF STUDY/CONTRAST BOLUS: Satisfactory PULMONARY ARTERIES: No central or segmental pulmonary emboli. THORACIC AORTA: No aneurysm or dissection. LUNG: The central airways are patent. Mild centrilobular emphysema and paraseptal emphysema. Right basilar subsegmental atelectasis. Multiple bilateral calcified granulomata. No dense consolidation. PLEURA: No pleural effusion or pneumothorax. MEDIASTINUM: The heart is normal in size. No pericardial effusion. No mediastinal lymphadenopathy. The visualized portion of the thyroid gland is unremarkable. No evidence of septal bowing or right heart strain. CHEST WALL/AXILLA: No axillary or internal mammary lymphadenopathy. OSSEOUS STRUCTURES: No acute or suspicious osseous abnormality. Mild degenerative changes of the spine. UPPER ABDOMEN: There is hypoattenuation of the liver consistent with hepatic steatosis. No reflux of contrast into the hepatic veins to suggest elevated right heart pressures. IMPRESSION: 1. No pulmonary embolism or other acute intrathoracic abnormality. 2. Multiple calcified granulomata are again noted in both lungs. 3. Hepatic steatosis. VTE: negative
--- NOTE | 2017-01-26 13:32 | History & Physical ---
AGATHA CUNHA,[facility] 01/26/17 1331: General Information and HPI History of Present Illness: Mr. 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 Pain is 9.35 out of 10, burning and squeezing. It "swirls around" in the chest/epigastric area. Worse with cough. Better with cannabis. Associated with nausea, vomiting, dyspnea, dizziness and headache. Last time he vomitted was this morning and it was NBNB. On ROS, patient has chronic pain in the back. Reports a hx of frequent episodes of nosebleed 4 months ago but it has resolved since then. Denies any bleeding in stools. On SH, he has been abstinent from alcohol for the past 3 years. He is a current smoker. He uses cannabis, last use was 3 days ago. Denies any other illcit drug use recenty. Patient lives alone at home but was evicted from his apartment yesterday. He does not see any doctors because they all refused to see him. He does not remember when is the last time he was seen by a doctor outside of hospital. He denies taking any medications at home. Full code. Allergies/Medications Allergies: Coded Allergies: aspirin (HIVES 11/28/16) Home Med list No Known Home Medications Past History Travel History Traveled to [place] past 21 day No Medical History Neurological: CVA, TIA EENT: NONE Cardiovascular: NONE Respiratory: NONE Gastrointestinal: NONE Hepatic: NONE Renal: NONE Musculoskeletal: BACK INJURY L KNEE L SHOULDER Psychiatric: alcohol dependence, bipolar disease, depression, psychosis, substance abuse Endocrine: NONE Blood Disorders: coagulopathy Cancer(s): NONE COSTUME DIRECTOR/Reproductive: NONE History of MRSA: No History of VRE: No History of CDIFF: No Surgical History Surgical History: R shoulder rot cuff repair Past Family/Social History Family History Relations & Conditions if any Relation not specified for: *No pertinent family history Psychosocial History Who Do You Live With? self Services at Home: None Primary Language: Occitan (bilingual. ESL, but fluent), Greek ETOH Use: denies use Functional Ability ADLs Independent: dressing, eating, toileting, bathing. Ambulation: independent IADLs Independent: shopping, housework, finances, food prep, telephone, transportation , medication admin. Review of Systems Review of Systems Constitutional: Reports: see HPI. Exam & Diagnostic Data Last 24 Hrs of Vital Signs/I&O Vital Signs Date Time Temp Pulse Resp B/P B/P Pulse O2 O2 Flow FiO2 Mean Ox Delivery Rate 01/26 1538 54 18 108/70 95 Room Air 01/26 1357 98.1 62 18 104/75 95 Room Air 01/26 1233 63 15 126/64 97 Room Air 01/26 1109 97.9 60 18 125/83 94 Room Air 01/26 1046 95 01/26 0907 98.4 65 20 111/78 99 Room Air Intake & Output 01/26 1600 01/26 0800 01/26 0000 Intake Total 1000 Output Total Balance 1000 Intake, IV 1000 Patient 72.121 kg Weight Weight Reported by Patient Measurement Method Physical Exam General Appearance Alert, Oriented X3, Cooperative, Mild Distress Skin No Rashes, No Breakdown, No Significant Lesion Skin Temp/Moisture Exam: Warm/Dry Sepsis Skin Exam (color): Normal for Ethnicity HEENT Atraumatic, PERRLA, EOMI, Mucous Membr. moist/pink Neck Supple, No JVD, No LAD Cardiovascular Regular Rate, Normal S1, Normal S2, No Murmurs, Gallops, Rubs Lungs Clear to Auscultation, Normal Air Movement Abdomen Normal Bowel Sounds, Soft, Severe tenderness on the left side and center Neurological Normal Speech, Normal Tone, Sensation Intact, Cranial Nerves 3-12 NL, Reflexes 2+, Strength 4/5 in LUE & LLE Strength 5/5 in RUE & RLE Extremities No Clubbing, No Cyanosis, No Edema, Normal Pulses, No Tenderness/ Swelling Vascular Normal Pulses, Pulses Symmetrical Assessment/Plan Assessment: Mr. 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 # Pancreatitis Patient has abdominal pain although on physical exam the location is inconsistent with his description. Also he reports nausea with multiple episodes of NBNB emesis for 2 days. His clinical presntation in the setting of elevated lipase and amylase is most concerning for pancreatitis. * Admit to * Vitals per protocol * Clear liquid diet, advance as tolerated * IV hydration * Consider GI consult if symptoms worsen # Dyspnea with atypical chest pain Most likely myofacial 2/2 cough. Per medical records, chest pain has been chronic. He has undergone a cardiac work up for the similar chest pain with no abnormal findings. This admission there are no ST or T wave abnormalities on EKG. First set of troponin negative. CTA negative for PE. * Consider checking second set of troponin with EKG to r/o ACS * Robitussin or Tessalon to suppress cough # Mood disorders He carries a h/o bipolar disorder with psychosis and substance abuse. * Psych consult, appreciate recs * Check Utox - Heart healthy diet - Mild pain pathway - DVT prophylaxis with SQH - Full code As Ranked By This Provider Problem List: 1. Chest wall pain 2. CVA (cerebral vascular accident) 3. Acute pancreatitis 4. Weakness of left side of body 5. Marijuana use 6. Cocaine abuse 7. Atypical chest pain Core Measures/Miscellaneous Acute Coronary Syndrome ACS Diagnosis: No Cerebrovascular Accident CVA/TIA Diagnosis: No Congestive Heart Failure CHF Diagnosis: No VTE (View Protocol) VTE Risk Factors: Age > 40 No [facility] VTE prophylaxis d/t: No contraindications No VTE Pharm Prophylaxis d/t: No contraindications VTE Diagnosis: No VTE Type: NONE VTE Confirmed by (Test): NONE Sepsis (View Protocol) Severe Sepsis Present: No Septic Shock Septic Shock Present: No Miscellaneous Documentation Attending Case Discussed With: DANIA CUHNAALVARO Primary Care Physician: PATIENT HAS NO PRIMARY CARE DR Patient sees these Specialists None Level of Patient Care: General Medicine [facility] 1413: Resident Review Statement Resident Statement: examined this patient, discussed with digital marketing intern, agreed with digital marketing intern Other Findings: Patient is a 61 year old man with a past medical history of CVA (mar 2015) with residual hemiparesis in the left leg, TIA, chronic back and shoulder pain, and extensive psych history including bipolar disorder, substance abuse, and psychosis who presents with a 4 day history of upper abdominal and retrosternal burning pain and vomitting for the past 2 days. His epigastric and retrosternal chest pain is worsened by meals and has no relieving factors. He also had vomitting of recently ingested meals which was brownish and non bloody (Two episodes yesterday and one this morning). He also has intermittent bouts of cough and a headache associated with the retrosternal pain. He denies diarrhea or bleeding [place]. He feels his abdomen is bigger than usual. He has not eaten much for the past 3 days. Of note, he was admitted in November 2016 for symptoms of weakness and chest discomfort with a negative cardiac workup. The patient has not seen a physician or taken any medications for the past 1 year. He was recently ejected from his apartmentand claims that it has molds. He denies alcohol use for at least 3 years and also denies cocaine use for over 1 year. He however states that he smokes marijuana because it calms him. His vitals on admission were T 98.4F, HR 65 bpm, RR 20, BP 111/78 mmhg, O2 sat 99% on room air. Physical Exam General Appearance: Alert, anxious looking, not in distress Skin: No Rashes, No Breakdown HEENT: PERRLA, EOMI Neck: Supple Cardiovascular: Normal S1, Normal S2, no murmurs Lungs: Clear to Auscultation, Normal Air Movement Abdomen: Full, soft, tenderness in epigastric and periumbilical region, normal Bowel Sounds Neurological: Strength 4/5 on left leg, 5/5 right leg, Stregth 5/5 in Right and left upper limbs. Normal tone: Triceps, knee jerk reflexes brisk Extremities: No Clubbing, No Cyanosis, No Edema. Vascular: Normal Pulses, Pulses Symmetric His labs were significant for WBC 12.3/CUMM, Hb 15.5, Hct 46.1, Na 141, K 4.2, BUN 15/creatinine 1, normal LFT, triglyceride 161, amylase 166, lipase 703. troponin <0.0, D-dimer 484. Urinalysis normal and serum alcohol negative. EKG normal sinus rhythm. HR 61 bpm, with no acute ST-T changes, QTC 407 CTA chest was negative for PE Assessment Mr. Cortes comes in with symptoms consistent with acute pancreatitis. He also has some symptoms that could be from GERD. However, he is a poor historian and some of his physical exam findings such as his abdominal tenderness seem to be inconsistent and intermittent. He should be admitted for treatment of acute pancreatitis, rehydrated, and given adequate pain control. Problem list 1. Acute pancreatitis 2. Retrosternal chest discomfort likely GERD 3. History of bipolar disorder 4. History of DVA with residual left leg weakness Plan * Admit to general medicine * Clear liquid diet as tolerated * IV Zofran 4 mg Q6 hrs PRN for nausea or vomitting * IV Ringers lactate @ 150 cc/hr * IV morphine 4 mg Q 4 PRN for severe pain, PO tremadol for moderate pain * Serial abdominal exams * Repeat CBC and BEP a in the AM * IV protonix 40 mg daily * Consider psychiatry consult * Add on urine toxicology to urine sample * Consider adding aspirin on discharge for stroke prevention (Patient has not been taking any meds for a long time) * DVT prophylaxis with SC lovenox 40 mg daily * Patient is full code CHUYITA NAJERA MD 01/27/17 1441: Attending MD Review Statement Attending Statement Attending MD Statement: examined this patient, discuss w/resident/PA/ASSOCIATE MERCHANDISE PLANNER, agreed w/resident/PA/ASSOCIATE MERCHANDISE PLANNER, reviewed EMR data (avail) Attending Assessment/Plan: 61M PMH CVA s/p mild right sided weakness, bipolar disorder with psychosis, PTSD , presenting with complaints of pain to head, abdomen, back, left arm, and right knee. Patient is a poor historian. He reports intractable nausea and vomiting. Found to have lipase 700. Patient will be admitted for acute pancreatitis, IV hydration, morphine, advance diet as tolerated, psychiatry consult, continue home medications, DVT PPx.
--- NOTE | 2017-01-26 13:43 | NUR ---
URINE SENT TO LAB BY [facility].
--- NOTE | 2017-01-26 14:56 | NUR ---
PT RESTING IN BED, TALKING ON PHONE TO NEIGHBOR AT THIS TIME. ADMISSION MEDICATIONS ADMINISTERED PER MAR. DENIES PAIN OR DISCOMFORT, TELLS THIS RN, "I'M JUST TIRED." RESP EVEN AND NONLABROED, EQUAL RISE AND FALL OF THE CHEST AND IN NAD AT THIS TIME.
--- NOTE | 2017-01-26 16:17 | NUR ---
PT SLEEPING IN BED AT THIS TIME, RESP EVEN AND NONLABORED, EQUAL RISE AND FALL OF THE CHEST AND IN NAD. REMAINS ON MONITOR IN ROOM. ADMISSION FLUIDS CONT TO RUN. VSS. WILL CONT TO MONITOR.
--- NOTE | 2017-01-26 16:19 | NUR ---
PT HAS A BED [id number]
--- NOTE | 2017-01-26 16:37 | NUR ---
REPORT GIVEN TO DINO, RN AND ANSWERED ALL QUESTIONS. TRANSPORT BOOKED.
--- NOTE | 2017-01-26 17:15 | NUR ---
1654 PATIENT ARRIVED TO THE FLOOR, A+O X3, ON RA, NO S/O DISTRESS, VSS, PAIN STATED MANAGABLE. ORIENTED TO THE ROOM, BED LOW, LOCKED, CALL LIGHT IN REACH.
[2017-01-26 17:48] VITALS: BP 102/72
[2017-01-26 21:36] VITALS: BP 118/80
--- NOTE | 2017-01-27 05:50 | PN- Housestaff ---
AGATHA CUNHA,SHIRA 01/27/17 0550: Subjective Follow-up For: Pancreatitis Subjective: Patient seen and examined this morning. Resting comfortably in bed with some nonspecific complaints including headache, chest wall pain and abdominal pain. Reports slightly improvement compared to yesterday. He has some nausea occassionally but tolerating clear liquid diet this morning. Review of Systems Constitutional: Reports: see HPI. Objective Last 24 Hrs of Vital Signs/I&O Vital Signs Date Time Temp Pulse Resp B/P B/P Pulse O2 O2 Flow FiO2 Mean Ox Delivery Rate 01/27 0626 97.5 60 24 110/68 95 Room Air 01/27 0000 94 Room Air Room Air 01/26 2136 98.8 60 16 118/80 94 Room Air 01/26 1748 94 Room Air Room Air 01/26 1748 97.4 52 20 102/72 94 Room Air 01/26 1538 54 18 108/70 95 Room Air 01/26 1357 98.1 62 18 104/75 95 Room Air 01/26 1233 63 15 126/64 97 Room Air 01/26 1109 97.9 60 18 125/83 94 Room Air 01/26 1046 95 01/26 0907 98.4 65 20 111/78 99 Room Air Intake & Output 01/27 1600 16 0800 01/27 0000 Intake Total 1440 Output Total 125 400 Balance 1315 -400 Intake, IV 1200 Intake, Oral 240 Number 0 Bowel Movements Output, Urine 125 400 Patient 68.039 kg Weight Weight Reported by Patient Measurement Method Physical Exam General Appearance: Alert, Oriented X3, Cooperative, No Acute Distress Other Physical Findings: Skin No Rashes, No Breakdown, No Significant Lesion Skin Temp/Moisture Exam: Warm/Dry Sepsis Skin Exam (color): Normal for Ethnicity HEENT Atraumatic, PERRLA, EOMI, Mucous Membr. moist/pink Neck Supple, No JVD, No LAD Cardiovascular Regular Rate, Normal S1, Normal S2, No Murmurs, Gallops, Rubs Lungs Clear to Auscultation, Normal Air Movement Abdomen Normal Bowel Sounds, Soft, Severe tenderness on the left side and center Neurological Normal Speech, Normal Tone, Sensation Intact, Cranial Nerves 3-12 NL, Reflexes 2+, Strength 4/5 in LUE & LLE Strength 5/5 in RUE & RLE Extremities No Clubbing, No Cyanosis, No Edema, Normal Pulses, No Tenderness/ Swelling Vascular Normal Pulses, Pulses Symmetrical Current Medications: Current Medications Sig/Ryder Start time Last Medication Dose Route Stop Time Status Admin Acetaminophen 650 MG Q4P PRN 01/26 1430 AC 01/27 PO 0515 Albuterol Sulfate 3 ML ONCE ONE 01/26 1030 DC 01/26 INH 01/26 1031 1044 Benzonatate 100 MG Q8P PRN 01/27 0830 AC PO Enoxaparin Sodium 0 .STK-MED ONE 01/26 1449 DC SC Enoxaparin Sodium 0 .STK-MED ONE 01/26 1448 DC SC Enoxaparin Sodium 40 MG DAILY 01/26 1420 AC 01/26 SC 1454 Guaifenesin/Codeine 10 ML Q6P PRN 01/27 0830 CAN Phosphate PO Ipratropium Thomson 2.5 ML ONCE ONE 01/26 1030 DC 01/26 INH 01/26 1031 1044 Ketorolac 0 .STK-MED ONE 01/26 1038 DC Tromethamine .ROUTE Ketorolac 30 MG ONCE ONE 01/26 1030 DC 01/26 Tromethamine IV 01/26 1031 1036 Lactated Ringer's 1,000 ML Q6H 01/26 1430 AC 01/27 IV 0413 Morphine Sulfate 4 MG Q4P PRN 01/26 1430 AC 01/27 IV 0727 Morphine Sulfate 4 MG ONCE ONE 01/26 1215 DC IV 01/26 1216 Ondansetron HCl 4 MG Q6P PRN 01/27 0830 CAN PO Ondansetron HCl 4 MG Q6P PRN 01/26 1600 AC 01/27 IV 0821 Ondansetron HCl 0 .STK-MED ONE 01/26 1038 DC .ROUTE Ondansetron HCl 4 MG ONCE ONE 01/26 1030 DC 01/26 IV 01/26 1031 1036 Pantoprazole Sodium 0 .STK-MED ONE 01/26 1448 DC IV Pantoprazole Sodium 40 MG DAILY 01/26 1430 AC 01/26 IV 1454 Sodium Chloride 1,000 ML BOLUS ONE 01/26 1215 DC 01/26 IV 01/26 1314 1211 Tramadol HCl 50 MG Q6P PRN 01/26 1430 AC 01/27 PO 0433 Last 24 Hrs of Lab/Steven Results Last 24 Hrs of Labs/Mics: Laboratory Tests 01/27/17 0628: Anion Gap 5, Estimated GFR > 60, BUN/Creatinine Ratio 14.0, CBC w Diff NO MAN DIFF REQ, RBC 4.21 L, MCV 97.6 H, MCH 32.2 H, RDW 14.5, MPV 7.8, Gran % 45.1, Lymphocytes % 32.9, Monocytes % 8.3, Eosinophils % 13.3 H, Basophils % 0.4, Absolute Granulocytes 4.5, Absolute Lymphocytes 3.3, Absolute Monocytes 0.8 H, Absolute Eosinophils 1.3, Absolute Basophils 0, PUBS MCHC 33.0 01/26/17 2210: Troponin I < 0.01 01/26/17 1341: Urine Opiates Screen < 100.00, Methadone Screen < 40, Barbiturate Screen < 60, Ur Phencyclidine Scrn < 6.00, Amphetamines Screen < 100, U Benzodiazepines Scrn < 85, Urine Cocaine Screen < 50, Urine Cannabis Screen > 80.00 H, Urine Color YEL, Urine Clarity CLEAR, Urine pH 6.0, Ur Specific [place] 1.010, Urine Protein NEG, Urine Ketones NEG, Urine Nitrite NEG, Urine Bilirubin NEG, Urine Urobilinogen 0.2, Ur Leukocyte Esterase NEG, Ur Microscopic EXAM NOT REQUIRED, Urine Hemoglobin NEG, Urine Glucose NEG 01/26/17 1008: Anion Gap 10, Estimated GFR > 60, BUN/Creatinine Ratio 15.0, Glucose 99, Calcium 9.8, Total Bilirubin 0.7, AST 23, ALT 49, Alkaline Phosphatase 60, Troponin I < 0.01, Cyx-C-Xxqhmmpmsgy Pept 36.6, Total Protein 7.0, Albumin 4.2, Globulin 2.8, Albumin/Globulin Ratio 1.5, Triglycerides 161 H, Amylase 166 H, Lipase 703 H, Serum Alcohol < 10.0 01/26/17 0940: D-Dimer High Sensitivty 484 H, CBC w Diff NO MAN DIFF REQ, RBC 4.81, MCV 95.9 H, MCH 32.1 H, RDW 13.9, MPV 7.9, Gran % 72.9, Lymphocytes % 10.7 L, Monocytes % 8.3, Eosinophils % 7.7 H, Basophils % 0.4, Absolute Granulocytes 8.9 H, Absolute Lymphocytes 1.3, Absolute Monocytes 1.0 H, Absolute Eosinophils 0.9, Absolute Basophils 0.1, PUBS MCHC 33.5 Assessment/Plan Assessment: Mr. 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 # Pancreatitis Patient has abdominal pain although on physical exam the location is inconsistent with his description. Also he reports nausea with multiple episodes of NBNB emesis for 2 days. His clinical presntation in the setting of elevated lipase and amylase is most concerning for pancreatitis. * Vitals per protocol * Currently on clear liquid diet, advance as tolerated * IV hydration * Consider GI consult if symptoms worsen # Dyspnea with atypical chest pain Most likely myofacial 2/2 cough. Per medical records, chest pain has been chronic. He has undergone a cardiac work up for the similar chest pain with no abnormal findings. This admission there are no ST or T wave abnormalities on EKG. Troponins negative. CTA negative for PE. * Robitussin or Tessalon to suppress cough # Mood disorders He carries a h/o bipolar disorder with psychosis and substance abuse. * Psych consulted, appreciate recs * Check Utox - positive for cannabis - Heart healthy diet - Mild pain pathway - DVT prophylaxis with SQH - Full code Problem List: 1. Chest wall pain 2. Acute pancreatitis 3. CVA (cerebral vascular accident) 4. CVA (cerebral infarction) 5. Marijuana use Pain Ratin Pain Location: Abdomen Pain Goal: Pain 4 or less Pain Plan: Moderate pathway Tomorrow's Labs & Rationales: None CHUYITA NAJERA MD 01/27/17 1443: Attending MD Review Statement Attending Statement Attending MD Statement: examined this patient, discuss w/resident/PA/RESTAURANT SUPERVISOR, agreed w/resident/PA/RESTAURANT SUPERVISOR, reviewed EMR data (avail) Attending Assessment/Plan: 61M PMH CVA s/p mild right sided weakness, bipolar disorder with psychosis, PTSD , presenting with complaints of pain to head, abdomen, back, left arm, and right knee. Patient is a poor historian. He reports intractable nausea and vomiting. Found to have lipase 700. Treating as acute pancreatitis. Advancing diet. Seen by psych, they recommend anti-psychotics, but patient refuses, and he does have capacity to refuse. Anticipated discharge tomorrow if able to tolerate PO.
[2017-01-27 06:26] VITALS: BP 110/68
[2017-01-27 07:59] LABS: ABSOLUTE BASOPHIL COUNT 0 /CUMM (0.0-0.2); ABSOLUTE EOSINOPHIL COUNT 1.3 /CUMM (0.0-0.7); ABSOLUTE GRANULOCYTE CT 4.5 /CUMM (1.4-6.5); ABSOLUTE LYMPH COUNT 3.3 /CUMM (1.2-3.4); ABSOLUTE MONOCYTE COUNT 0.8 /CUMM (0.10-0.60); BASOPHIL % 0.4 % (0.0-2.0); EOSINOPHIL % 13.3 % (0-5); GRANULOCYTE % 45.1 % (42.2-75.2); MEAN CORPUSCULAR HGB 32.2 PG (27.0-31.0); MEAN CORPUSCULAR VOLUME 97.6 FL (80.0-94.0); MEAN PLATELET VOLUME 7.8 FL (7.4-10.4); PLATELET COUNT 193 /CUMM (130-400); RBC DISTRIBUTION WIDTH 14.5 % (11.5-14.5); RED BLOOD CELL CT 4.21 /CUMM (4.70-6.10); WHITE BLOOD CELL COUNT 9.9 /CUMM (4.8-10.8)
--- NOTE | 2017-01-27 08:21 | NUR ---
LATE ENTRY FOR 01/27/172129 CALL TO DR BRANHAM TO EVAL THE PT. PT CALLED NSG INTO ROOM WITH MULTIPLE ISSUES. PT CONTINUES TO HAVE HEADACHE AND CHEST PAINS. PER PT BOTH HAVE INCREASED IN SEVERITY. PT ALSO REPORTS R EYE TEARING. PT REQUESTING EVAL BY DOCTOR. PT STATES CONCERNED WITH TEARING EYE STATES HAD TEARING EYE WITH HIS LAST CVA. DR BRANHAM IN TO EVAL THE PT. AOX3. VSS. GRASPS NORMAL FOR HIS BASELINE. L SIDE REMAINS WITH SOME WEAKNESS FROM HX CVA. PUPILS EQUAL/REACTING. NEUROS INTACT PER MD. WILL CONTINUE TO MONITOR. MEDICATIONS GIVEN PER EMAR.
--- NOTE | 2017-01-27 08:32 | Patient Discharge Instructions ---
Discharge Instructions General Discharge Information You were seen/treated for: Pancreatitis Special Instructions: Please follow up with a primary care physician Dr. Valdez within 1 week of discharge. You may see a neurologist Dr. Dietz if your headache persists or worsens. Referral is provided below. If you would like to see a doctor for mental health, please call [phone] to make an appointment with a psychiatrist. You may see a healthcare technician Dr. Chavez if your abdominal pain with nausea or vomiting persists or worsens. We also recommend that you see him for a colonoscopy. We have provided you with a referral. Acute Coronary Syndrome Inclusion Criteria At DC or during hospital stay patient has or had the following: ACS DIAGNOSIS No Discharge Core Measures Meds if any: Prescribed or Continued at Discharge Meds if any: NOT Prescribed or Continued at Discharge Congestive Heart Failure Inclusion Criteria At DC or during hospital stay patient has or had the following: CHF DIAGNOSIS No Discharge Core Measures Meds if any: Prescribed or Continued at Discharge Meds if any: NOT Prescribed or Continued at Discharge Cerebrovascular accident Inclusion Criteria At DC or during hospital stay patient has or had the following: CVA/TIA Diagnosis No Discharge Core Measures Meds if any: Prescribed or Continued at Discharge Meds if any: NOT Prescribed or Continued at Discharge Venous thromboembolism Inclusion Criteria VTE Diagnosis No VTE Type NONE VTE Confirmed by (Test) NONE Discharge Core Measures - Per Current guidelines, there needs to be overlap - treatment for the first 5 days of Warfarin therapy. - If discharged on Warfarin prior to 5 days of - overlap therapy, the patient will need to be - assessed for post discharge needs including - *Post discharge parental anticoagulation - *Warfarin and/or parental anticoagulation education - *Follow up date to check INR post discharge At least 5 days overlap therapy as Inpatient No Meds if any: Prescribed or Continued at Discharge Note: Overlap Therapy is Warfarin and Anticoagulant Meds if any: NOT Prescribed or Continued at Discharge
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
[2017-01-27 14:24] VITALS: BP 106/60
[2017-01-27 21:26] VITALS: BP 114/82
--- NOTE | 2017-01-28 06:37 | PN- Housestaff ---
See Addendum Subjective Follow-up For: Pancreatitis Subjective: Mr Cortes was seen and examined this morning. Resting comfortably in bed. Reports no issues overnight. He is tolerating by mouth intake well. Denies any pain. Denies any fever, chills, nausea, vomiting. Review of Systems Constitutional: Reports: see HPI. Objective Last 24 Hrs of Vital Signs/I&O Vital Signs Date Time Temp Pulse Resp B/P B/P Pulse O2 O2 Flow FiO2 Mean Ox Delivery Rate 01/28 0656 98.0 60 20 112/74 92 01/28 0000 Room Air 01/27 2126 98.2 54 18 114/82 93 Room Air 01/27 1424 97.7 60 24 106/60 93 Room Air Intake & Output 01/28 1600 01/28 0800 01/28 0000 Intake Total 1680 930 Output Total 2825 1000 Balance -1145 -70 Intake, IV 1200 450 Intake, Oral 480 480 Output, Urine 2825 1000 Physical Exam General Appearance: Alert, Oriented X3, Cooperative Cardiovascular: Regular Rate, Normal S1, Normal S2 Lungs: Clear to Auscultation Abdomen: Normal Bowel Sounds, Soft, No Tenderness Neurological: Normal Speech, Strength at 5/5 X4 Ext Extremities: No Clubbing, No Cyanosis, No Edema Vascular: Normal Pulses Current Medications: Current Medications Sig/Ryder Start time Last Medication Dose Route Stop Time Status Admin Acetaminophen 650 MG Q4P PRN 01/26 1430 AC 01/28 PO 0401 Acetaminophen/ 1 TAB Q4P PRN 01/27 1145 AC 01/27 Butalbital/Caffeine PO 1641 Alprazolam 0.5 MG TID PRN 01/27 1130 DC 01/27 PO 02/03 1129 1127 Benzonatate 100 MG Q8P PRN 01/27 0830 AC 01/27 PO 1018 Enoxaparin Sodium 40 MG DAILY 01/26 1420 AC 01/28 SC 0827 Lactated Ringer's 1,000 ML Q6H 01/26 1430 DC 01/28 IV 0827 Morphine Sulfate 15 MG Q4P PRN 01/27 1330 AC 01/28 PO 0834 Morphine Sulfate 4 MG Q4P PRN 01/26 1430 DC 01/27 IV 1127 Ondansetron HCl 4 MG Q6P PRN 01/26 1600 AC 01/27 IV 0821 Pantoprazole Sodium 40 MG DAILY 01/26 1430 01/28 IV 0828 Patient Medication 1 ED .STK-MED ONE 01/27 1415 [place] Teaching ED 01/27 1416 Tramadol HCl 50 MG Q6P PRN 01/26 1430 01/27 PO 2948 Assessment/Plan Assessment: Mr. 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 Patient stable for discharge. # Pancreatitis Patient has abdominal pain although on physical exam the location is inconsistent with his description. Also he reports nausea with multiple episodes of NBNB emesis for 2 days. His clinical presntation in the setting of elevated lipase and amylase is most concerning for pancreatitis. * Vitals per protocol * Currently on regular diet, advance as tolerated * Consider GI consult if symptoms worsen # Dyspnea with atypical chest pain Most likely myofacial 2/2 cough. Per medical records, chest pain has been chronic. He has undergone a cardiac work up for the similar chest pain with no abnormal findings. This admission there are no ST or T wave abnormalities on EKG. Troponins negative. CTA negative for PE. * Robitussin or Tessalon to suppress cough # Mood disorders He carries a h/o bipolar disorder with psychosis and substance abuse. * Psych consulted, appreciate recs * Check Utox - positive for cannabis. * Provided a prescription for Seroquel 50 mg every 8 as per recommended by psychiatry. - Heart healthy diet - Mild pain pathway - DVT prophylaxis with SQH - Full code Problem List: 1. Acute pancreatitis Pain Ratin Pain Location: No Pain Pain Goal: Remain pain free Pain Plan: No Pain Tomorrow's Labs & Rationales: No Labs
[2017-01-28 06:56] VITALS: BP 112/74
[2017-01-28] MEDS ORDERED: PERCOCET 5-3251 EACH PO ×2 (10:43→10:49)
[2017-01-28] MEDS ORDERED: SEROQUEL50 M1 PO (10:43)
[2017-01-28] MEDS ORDERED: ULTRAM50 M1 PO ×2 (10:45→10:46)
[2017-01-28] MEDS ORDERED: ZOFRAN4 M2 PO (10:49)
--- NOTE | 2017-01-29 06:32 | Discharge Summary ---
Visit Information Visit Dates Admission Date: 01/26/17 Discharge Date: 01/28/17 Hospital Course Course Attending Physician: CHUYITA NAJERA MD Primary Care Physician: PATIENT HAS NO PRIMARY CARE DR Hospital Course: Mr. 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 # Acute pancreatitis In the setting of his elevated lipase upon admission (above 700), the patient's GI symptoms were concerning for acute pancreatitis. He received IV hydration and his diet was advanced slowly. By the end of his hospitalization he was able to tolerated a regular diet with no nausea or vomiting. # Mood disorders He carries a h/o bipolar disorder with psychosis and substance abuse. Utox was only positive for cannabis. Pyschiatric service was provided and recommended treatment with antipsychotics but the patient refused and he was determined to have a capacity. Allergies: Coded Allergies: aspirin (HIVES 11/28/16) Disposition Summary Disposition Principal Diagnosis: Acute pancreatitis Additional Diagnosis: N/A Discharge Disposition: home or self care Discharge Instructions General Discharge Information Code Status: Full Code Patient's Diet: Heart healthy Patient's Activity: As tolerated Follow-Up Instructions/Appts: Please follow up with a primary care physician Dr. Valdez within 1 week of discharge. You may see a neurologist Dr. Dietz if your headache persists or worsens. Referral is provided below. If you would like to see a doctor for mental health, please call [phone] to make an appointment with a psychiatrist. You may see a industrial relations worker Dr. Chavez if your abdominal pain with nausea or vomiting persists or worsens. We also recommend that you see him for a colonoscopy. We have provided you with a referral. Medications at Discharge Discharge Medications: Stop taking the following medications: Tramadol HCl (Ultram) 50 MG TABLET ORAL EVERY SIX HOURS NEEDED as needed for Abdominal Pain Qty = 21 Start taking the following new medications: Quetiapine Fumarate (Seroquel) 50 MG TABLET 1 Tablet ORAL EVERY 8 HOURS Qty = 30 No Refills Ondansetron HCl (Zofran) 4 MG TABLET 1 Tablet ORAL EVERY SIX HOURS Qty = 10 No Refills Comments: Last Taken: 01/28/17 Time: 830 am Oxycodone HCl/Acetaminophen (Percocet 5-325 MG Tablet) 5 MG-325 MG TABLET 1 Tablet ORAL TWICE DAILY Qty = 10 No Refills Copies To: HARISH CUNHA,BARBY; JOBY CUNHA,BRUNO
== END 2017-01-28 12:25 | DRG 282 ==
LOC: ERH 08:42 → ERHI 13:08 → 2NB 13:08 → ENRESERV 15:50 → ENTRNSPT 16:37 → 2NB 16:54 → CMPTRNSPT 17:13 → ENPENDDIS 01-28 11:51 → 2NB 01-28 12:25
PROVIDERS: Emergency Medicine; Internal Medicine; ADMIT Internal Medicine
DX: K85.90 Acute pancreatitis without necrosis or infection, unspecified (principal); I69.354 Hemiplegia and hemiparesis following cerebral infarction affecting left non-dominant side; F31.9 Bipolar disorder, unspecified; F43.10 Post-traumatic stress disorder, unspecified; J45.909 Unspecified asthma, uncomplicated; F12.90 Cannabis use, unspecified, uncomplicated
CPT/HCPCS: 2NBP; 80307; 81003; 82436; 93005; 93010; 96361; 96374; 96375; 99291; G0480; J1650; J1885; J2405; J7120